=== PATIENT | female | born 2000 | race Caucasian/White ===

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

== ENCOUNTER 2018-02-05 20:50 | Emergency (ER) | payer BC ==
[~2018-02-05] VITALS: Ht 162.6 cm; Wt 68.0 kg
[2018-02-05 21:05] VITALS: BP_SYST 123
[2018-02-05] MEDS ORDERED: ONDANSETRON HCL 4 MG/2 ML VIAL IVP ONE (22:00)
[2018-02-05] MEDS ORDERED: KETAMINE 30 MG/3 ML SYRINGE IVP ONE (22:00)
[2018-02-05] MEDS ORDERED: NACL 0.9% 1,000 ML IV ONE (22:00)
[2018-02-05] MEDS ORDERED: PREGABALIN 75 MG CAPSULE (LYRICA) PO ONE (22:00)
[2018-02-05 22:24] LABS: BILIRUBIN,URINE 1+ (NEGATIVE); BLOOD, URINE 3+ (NEGATIVE); COLOR,URINE YELLOW (YELLOW); GLUCOSE,URINE NEGATIVE (NEGATIVE); KETONES,URINE TRACE (NEGATIVE); LEUKOCYTE ESTERASE ,URINE NEGATIVE (NEGATIVE); NITRITE, URINE NEGATIVE (NEGATIVE); PROTEIN URINE 2+ (NEGATIVE); UROBILINOGEN,URINE 0.2 (0.2-1.0)
[2018-02-05 22:26] LABS: CLARITY/URINE SLIGHTLY HAZY (CLEAR)
[2018-02-05] MEDS ORDERED: PREGABALIN 75 MG CAPSULE (LYRICA) ONE (22:28)
[2018-02-05 22:43] LABS: BACTERIA,URINE FEW /HPF (None Seen); RBC,URINE 20-50 /HPF (0-3)
[2018-02-05 22:44] LABS: MUCUS,URINE 1+ /LPF (None Seen)
[2018-02-05 22:50] LABS: BASOPHILS # (AUTO) 0.1 K/uL (0.0-0.2); BASOPHILS % (AUTO) 1.3 % (0.0-2.0); EOSINOPHILS # (AUTO) 0.1 K/uL (0.0-0.4); EOSINOPHILS % (AUTO) 1.2 % (0.0-4.0); HEMATOCRIT 41.3 % (36-48); HEMOGLOBIN 13.3 g/dL (12.0-16.0); LYMPHOCYTES % (AUTO) 29.8 % (20.5-51.5); MEAN CORPUSCULAR HEMOGLOBIN 30 pg (27-31); MEAN CORPUSCULAR HGB CONC 32 % (32-36); MEAN CORPUSCULAR VOLUME 94 fL (79.0-98.0); MONOCYTES # (AUTO) 0.7 K/uL (0.0-1.0); NEUTROPHILS # (AUTO) 6.2 K/uL (1.8-7.7); NEUTROPHILS % (AUTO) 60.7 % (40.0-70.0); PLATELET COUNT (AUTO) 423 K/uL (130-430); RED BLOOD CELL COUNT(AUTO) 4.42 MIL/uL (4.2-6.2); RED CELL DISTRIBUTION WIDTH 11.6 % (9.0-15.0); WHITE BLOOD COUNT (AUTO) 10.1 K/uL (4.5-11.0)
[2018-02-05 22:51] LABS: CALCIUM 9.7 mg/dL (8.4-11.0); CREATININE 0.68 mg/dL (0.55-1.30); POTASSIUM 3.8 mmol/L (3.5-5.1)
[2018-02-05 22:56] LABS: TOTAL BILIRUBIN 0.3 mg/dL (0.0-1.0)
[2018-02-06 00:45] VITALS: BP_SYST 116
== END 2018-02-06 00:45 | disposition home or self-care (01) ==
LOC: SED 20:50
DX: M79.7 Fibromyalgia (principal); F41.9 Anxiety disorder, unspecified; Z88.1 Allergy status to other antibiotic agents; Z88.2 Allergy status to sulfonamides
CPT/HCPCS: 36415; 80053; 81000; 81025; 83690; 83735; 85025; 86140; 87086; 96361; 96374; 96375; 99284; J2405; J7030

== ENCOUNTER 2019-01-12 13:05 | Outpatient (CLI) | payer BC | END 2019-01-12 20:35 | disposition home or self-care (01) | LOC: SUS 13:05 | PROVIDERS: ATTEND Family Medicine | DX: N60.01 Solitary cyst of right breast (principal) | CPT/HCPCS: 76641 ==